=== PATIENT | male | born 1975 | race Asian ===

== ENCOUNTER 2024-01-22 05:12 | Emergency (ER) | payer OTHER, SELFPAY ==
[2024-01-22 05:19] VITALS: BP 136/90
[2024-01-22 07:27] VITALS: BP 137/87
[2024-01-22 07:29] VITALS: BMI 28.1
--- NOTE | 2024-01-22 07:58 | ED.GENMED ---
History of Present Illness
General
Chief Complaint: Anal/Rectal Problem
Source: patient
Exam Limitations: none
Time Seen by Provider: 01/22/24 07:57
History of Present Illness
History of Present Illness:
48-year-old male presents with onset of pain and swelling to the perirectal area last evening. Triage note says it was bloody however patient denies to me that it was bleeding or draining. He denies fevers. Hurts to sit. He is healthy otherwise
not a diabetic. No other complaints
Past History
Past History
ED Past Medical History: Asthma and GERD
ED Past Surgical History: None
Social History
Tobacco: Smoker
Alcohol: Daily (One bottle of wine daily, 6 beers)
Personal: Other
Living: with family
Employment: Employed (maintenance)
Family History
Family History: Other
Phy Exam
Physical Exam
Physical Exam:
General: Well-appearing male no acute respiratory distress
HEENT: Normocephalic atraumatic neck is supple
Heart: Regular rate and rhythm no murmurs
Lungs: Clear no wheeze or rales
Abdomen is soft nontender nondistended no guarding or rebound
Rectal exam: There is a area of swelling in the left superior aspect of the perianal region. This is tender and fluctuant there is a small amount of thrombosis underneath the skin. Surrounding skin is not indurated
Course
Vital Signs
Initial and Last Documented VS:
Initial Vital Signs
Temp Pulse Resp BP Pulse Ox
97.8 F 80 22 136/90 98
01/22/24 05:19 01/22/24 05:19 01/22/24 05:19 01/22/24 05:19 01/22/24 05:19
Last Documented Vital Signs
Temp Pulse Resp BP Pulse Ox
97.8 F 80 22 137/87 99
01/22/24 05:19 01/22/24 05:19 01/22/24 05:19 01/22/24 07:27 01/22/24 07:30
MDM/Problems Addressed
Differential Diagnosis Includes:
Perianal swelling acute. Differential could include hemorrhoid versus thrombosed hemorrhoid versus perianal abscess
Discussed with patient treatment options. Recommended incision and drainage. He was agreeable.
Upon injecting lidocaine to the area the perianal abscess drained and a large amount of purulent fluid was expressed. This was then further expressed with direct pressure. A small blood clot was also expressed from the area. This was then
irrigated with saline and dressed with gauze. Patient will be started on an antibiotic.
*Critical Care Note
Total Time (30-74mins, 75-104mins- exclusive of procedures): Not Applicable
ED Attending Note
-
Portions of this chart may have been created with voice recognition software.� Occasional wrong word or��sound alike� substitutions may have occurred due to the inherent limitations of voice recognition software.
Discharge Plan
Departure
Patient Disposition: Home (Routine Discharge)
Date of Disposition: 01/22/24
Time of Disposition: 08:19
Patient with high blood pressure during this ER visit?: No
Discharge Problem:
Abscess, perianal
Instructions: Anal Abscess and Fistula, Adult (DC)
Prescriptions:
New
amoxicillin-pot clavulanate 875-125 mg tablet
1 tab PO BID Qty: 14 0RF
No Action
omeprazole 20 MG capsule,delayed release(DR/EC)
20 mg PO DAILY
albuterol sulfate 1 PUFF HFA aerosol inhaler
2 puff inhalation R [id number] PRN (Reason: cough) Qty: 1 0RF
Referrals:
UNKNOWN - PT DOES,NOT KNOW [Family Provider] -
Activity Restrictions/Additional Instructions:
Soak in warm water. Use antibiotics as directed. Change dressing if needed peer return if worse otherwise follow-up with family doctor
Interventions
Interventions:
*Risk Screen - Suicide Last Done: 01/22/24 05:19
*General Assessment Last Done: 01/22/24 07:29
*Neglect/Abuse Screening Last Done: 01/22/24 05:19
ED- Fall Risk Assessment Last Done: 01/22/24 07:29
*ED COVID-19 Vaccine History Last Done: 01/22/24 07:29
ZS-Jxcpnx-Txnjfneomd Assessment Last Done: 01/22/24 07:29
ED-Skin Assessment Last Done: 01/22/24 07:29
Discharge Date and Time
Print Language: KHMER
== END 2024-01-22 08:26 | disposition home or self-care (01) ==
LOC: EMR 05:12
PROVIDERS: EMERGENCY PHYSICIAN Emergency Medicine
DX: K61.0 Anal abscess (principal); J45.909 Unspecified asthma, uncomplicated; K21.9 Gastro-esophageal reflux disease without esophagitis; F17.200 Nicotine dependence, unspecified, uncomplicated
CPT/HCPCS: 99283; 10060

== ENCOUNTER → 2024-06-14 09:01 | Outpatient (REF) | payer OTHER, SELFPAY | LOC: RAD 09:01 | PROVIDERS: ATTENDING PHYSICIAN Specialist | DX: R31.9 Hematuria, unspecified (principal) | CPT/HCPCS: 74176 ==